=== PATIENT | male | born 1965 | race Caucasian/White ===

== ENCOUNTER 2023-10-26 15:04 | Emergency (ER) | payer OTHER, SELFPAY ==
--- NOTE | ~2023-10-26 | CT_ITS ---
EXAMINATION: CT abdomen pelvis w con DATE: 10/26/2023 18:49 INDICATION: abd pain x3mo TECHNIQUE: Computed tomography (CT) of the abdomen and pelvis was performed with 100 mL Omnipaque-350 intravenous contrast. Automated exposure control and iterative reconstruction technique were employe d. The dose-length product was 303.35 mGy-cm. COMPARISON: None. FINDINGS: Lower thorax: Unremarkable Liver: Mildly enlarged. Biliary/Gallbladder: Gallbladder is partially contracted, with mild wall hyperemia. Mild common bile duct dilation to 8 mm. No obstructing stone or mass Pancreas: No mass or duct dilation. Spleen: Normal. Adrenals:No mass. Kidneys: No suspicious mass, obstructing stone, or hydronephrosis. Multiple subcentimeter right renal hypodensities that most likely represent cysts. GI tract: Mild distal esophageal wall edema. No small or large bowel dilation. Normal appendix. Mesentery/Peritoneum: No ascites, mass, or free air. Retroperitoneum: No mass. Atherosclerotic abdominal aortic and/or arterial calcifications. Pelvis: Pelvic organs are within normal limits. Soft Tissues: Soft tissues and body wall unremarkable. Bones: No acute osseous finding. IMPRESSION: Mild esophagitis. Hepatomegaly. Gallbladder wall hyperemia and mild common bile duct dilation, without significant surrounding inflam matory change or obstructing stone or mass. Correlate with symptoms of right upper quadrant pain and biliary labs. Otherwise, no acute abdominopelvic process detected. Reviewed, dictated and finalized at location K. IMPRESSION: Mild esophagitis. Hepatomegaly. Gallbladder wall hyperemia and mild common bile duct dilation, without signific ant surrounding inflammatory change or obstructing stone or mass. Correlate wit h symptoms of right upper quadrant pain and biliary labs. Otherwise, no acute abdominopelvic process detected.
[2023-10-26 15:26] VITALS: BP 146/69; PULSE 67; RESP 18; TEMP 36.6; O2SAT 98
--- NOTE | 2023-10-26 15:30 | ECG_ITS ---
Measurements Intervals [place] Rate: 56 P: 60 MI: 183 QRS: -52 QRSD: 102 T: -50 QT: 401 QTc: 389 Interpretive Statements SINUS BRADYCARDIA INCOMPLETE RIGHT BUNDLE BRANCH BLOCK LEFT ANTERIOR FASCICULAR BLOCK CANNOT RULE OUT SEPTAL INFARCT, AGE INDETERMINATE BORDERLINE T WAVE ABNORMALITY- INF/LAT LEADS BASELINE ARTIFACT- I, II, AVR, V4-V6 ABNORMAL ECG NO PREVIOUS ECG AVAILABLE FOR COMPARISON Electronically Signed On 10-26-2023 15:52:05 CDT by Akshat Hussein D.O.
--- NOTE | 2023-10-26 15:30 | ED.ABDPAIN ---
HPI - Abdominal Pain General Chief Complaint: Abdominal Pain <Stacy Villarreal PA-C - Last Filed: 10/28/23 09:12> Stated Complaint: abdominal pain <Stacy Villarreal PA-C - Last Filed: 10/28/23 09:12> Time Seen by Provider: 10/26/23 15:30 <Stacy Villarreal PA-C - Last Filed: 10/28/23 09:12> Focused HPI: This is a 58-year-old male that presents to the emergency department for epigastric abdominal pain. Ongoing over the last several months. Reports he has not been evaluated for this or seen a doctor in at least 15 years. The pain has been constant. No associated symptoms. Denies fevers, vomiting, or diarrhea. Patient reported to nursing staff that if we didn't find out the cause of his pain he would shoot himself tonight GENERAL: Well-appearing, well-nourished, and in no acute distress. HEAD: Normocephalic, atraumatic. CHEST: Clear to auscultation. ?No respiratory distress. HEART: Regular rate and rhythm.? NEURO: ?Alert and oriented x3. Patient screened in triage and initial orders placed.? ?Additional care and disposition to be based upon?diagnostic testing and treatment. <Stacy Villarreal PA-C - Last Filed: 10/28/23 09:12> Focused HPI: This is a 58-year-old male that presents to the emergency department for epigastric abdominal pain. Ongoing over the last several months. Reports he has not been evaluated for this or seen a doctor in at least 15 years. The pain has been constant. No associated symptoms. Denies fevers, vomiting, or diarrhea. GENERAL: Well-appearing, well-nourished, and in no acute distress. HEAD: Normocephalic, atraumatic. CHEST: Clear to auscultation. ?No respiratory distress. HEART: Regular rate and rhythm.? NEURO: ?Alert and oriented x3. Patient screened in triage and initial orders placed.? ?Additional care and disposition to be based upon?diagnostic testing and treatment. <Rosaline Caballero PA-C - Last Filed: 10/26/23 21:29> Source: patient <Rosaline Caballero PA-C - Last Filed: 10/26/23 21:29> Mode of arrival: ambulatory <Rosaline Caballero PA-C - Last Filed: 10/26/23 21:29> Limitations: no limitations <Rosaline Caballero PA-C - Last Filed: 10/26/23 21:29> History of Present Illness HPI narrative: Agree with above MSE documentation. States pain has become worse over the last 1 week, constant for the last 3 days. Denies association with eating. Has not tried anything for the pain besides Pepto-Bismol. Denies any associated symptoms. States he is on disability due to his mental health issues. Denies current SI or HI. <Rosaline Caballero PA-C - Last Filed: 10/26/23 21:29> Related Data Allergies/Adverse Reactions: Allergies Allergy/AdvReac Type Severity Reaction Status Date / Time No Known Allergies Allergy Verified 10/26/23 18:04 <Stacy Villarreal PA-C - Last Filed: 10/28/23 09:12> Review of Systems Review of Systems: CONSTITUTIONAL: Denies fever, chills, or sweats. CARDIOVASCULAR: Denies chest pain. RESPIRATORY: Denies dyspnea. GASTROINTESTINAL: See HPI GENITOURINARY: Denies dysuria or hematuria. PSYCHIATRIC: See HPI <Rosaline Caballero PA-C - Last Filed: 10/26/23 21:29> All systems reviewed & are unremarkable except as noted in HPI and below <Rosaline Caballero PA-C - Last Filed: 10/26/23 21:29> [facility] Past Medical History Medical History: Medical History (Updated 10/28/23 @ 09:11 by Stacy Villarreal PA-C) No active medical problems <Stacy Villarreal PA-C - Last Filed: 10/28/23 09:12> Social History Social History: Social History (Updated 10/28/23 @ 09:11 by Stacy Villarreal PA-C) Substance use: never <Stacy Villarreal PA-C - Last Filed: 10/28/23 09:12> Exam Narrative: GENERAL: Appears older than stated age, somewhat disheveled, non-toxic, in no acute distress. HEAD: Normocephalic, atraumatic. ENT: Edentulous. MMs dry RESPIRATORY: Airway patent, respirations nonlabore
[2023-10-26 15:56] LABS: Basophils Percent Auto 0.5 % (0.2-1.2); Eosinophils Absolute Auto 0.2 K/mm3 (0-0.3); Eosinophils Percent Auto 3.3 % (0-4.4); Hematocrit 41.3 % (42.0-52.0); Hemoglobin 13.1 g/dL (14.0-18.0); Lymphocytes Absolute Auto 3.06 K/mm3 (0.9-3.2); Lymphocytes Percent Auto 51.1 % (18.3-44.2); Mean Corpuscular HGB Conc 31.7 g/dl (32-36); Mean Corpuscular Hemoglobin 29.8 pg (26-34); Mean Corpuscular Volume 93.9 fl (80-100); Mean Platelet Volume 9.3 fl (7.4-10.4); Monocytes Absolute Auto 0.5 K/mm3 (0.1-0.6); Monocytes Percent Auto 7.7 % (2.6-8.5); Neutrophils Absolute Auto 2.2 K/mm3 (1.3-6.7); Neutrophils Percent Auto 37.4 % (45.5-73.1); Platelet Count Result 334 k/mm3 (150-375); Red Cell Distribution Width 14.2 % (11.5-14.5)
[2023-10-26 16:28] LABS: Alanine Aminotransferase 33 U/L (6-50); Albumin Level 3.7 g/dL (3.5-5.1); Alkaline Phosphatase 45 U/L (38-126); Anion Gap 1 mmol/L (4-12); Aspartate Amino Transferase 37 U/L (17-59); Bilirubin,Total 0.3 mg/dL (0.2-1.3); Blood Urea Nitrogen 10 mg/dL (9-20); Calcium 9.1 mg/dL (8.4-10.2); Carbon Dioxide 29 mmol/L (22-30); Chloride 108 mmol/L (98-107); Estimated CRCL calculation 83 ml/min; Estimated Glomerular Filt Rate > 60; Glucose 108 mg/dL (65-110); Lipase 72 U/L (23-300); Sodium 138 mmol/L (137-145)
[2023-10-26 16:32] LABS: Troponin I < 0.012 ng/mL (0.000-0.034)
--- NOTE | 2023-10-26 17:04 | PC.NURSE ---
Pt pulled this RN aside in the [facility] and stated last night he had a pistol to his head d/t abdominal pain and if the pain does not go away he will pull the trigger tonight. regional engineer, Sydnee, and CHAZ Villarreal, notified.
[2023-10-26 17:24] LABS: Ethanol < 10 mg/dL (<10)
[2023-10-26 17:34] VITALS: BP 189/72; PULSE 68; RESP 18; TEMP 36.6; O2SAT 100
[2023-10-26 17:46] LABS: Appearance Urine Clear (Clear); Bacteria Urine None Seen /hpf; Bilirubin Urine Negative (Negative); Blood Urine Negative (Negative); Color Urine Yellow (Yellow); Glucose Urine UA Negative (Negative); Ketones Urine Negative (Negative); Leukocyte Esterase Ur Negative LEU/UL (Negative); Nitrate Urine Negative (Negative); Non Pathogenic Casts 0-2; Protein Urine Trace mg/dL (Negative); RBC Urine 0-2 /hpf (0-2); Specific Grav Ur 1.018 (1.001-1.035); Squamous Epithelial Cell Urine None Seen /hpf (Few); Urobilinogen Urine 0.2 mg/dL (<2.0); WBC Urine 0-5 /hpf (0-3)
[2023-10-26 17:56] LABS: Add Urine Microscopic? YES
[2023-10-26 17:57] LABS: Amphetamine Screen Urine Negative (Negative); Barbiturate Screen Urine Negative (Negative); Benzodiazepines Screen Urine Negative (Negative); Cannabinoid Screen Urine Positive (Negative); Cocaine Screen Urine Negative (Negative); Methadone Screen Urine Negative (Negative); Opiate Screen Urine Negative (Negative); Phencyclidine Screen Urine Negative (Negative)
[2023-10-26 18:02] VITALS: BP 151/103; PULSE 49; RESP 17; O2SAT 98
[2023-10-26] MEDS: PANTOPRAZOLE SODIUM IV 40 MG VIAL IV PUSH (18:04)
[2023-10-26] MEDS: Please add drug allergy info to patient profile. 1 EACH XX (18:04)
--- NOTE | 2023-10-26 18:06 | PC.NURSE ---
pt states they only said they wanted to hurt themselves because of the pain they are in but didn't mean it . pt denies any thoughts of self-harm or harming others
--- NOTE | 2023-10-26 18:09 | ED.ABDPAIN ---
HPI - Abdominal Pain General Chief Complaint: Abdominal Pain Stated Complaint: abdominal pain Time Seen by Provider: 10/26/23 15:30 Related Data Allergies Allergy/AdvReac Type Severity Reaction Status Date / Time No Known Allergies Allergy Verified 10/26/23 18:04 Course Vital Signs Vital signs: Vital Signs Temperature 97.9 F 10/26/23 15:26 Pulse Rate 67 10/26/23 15:26 Respiratory Rate 18 10/26/23 15:26 Blood Pressure 146/69 H 10/26/23 15:26 Pulse Oximetry 98 10/26/23 15:26 Oxygen Delivery Room Air 10/26/23 15:26 Temperature 97.8 F 10/26/23 17:34 Pulse Rate 68 10/26/23 17:34 Respiratory Rate 18 10/26/23 17:34 Blood Pressure 189/72 H 10/26/23 17:34 Pulse Oximetry 100 10/26/23 17:34 Oxygen Delivery Room Air 10/26/23 15:26 MDM - Abdominal Pain Medical Records Attestation: I reviewed the patient's medical records. Lab Data Attestation: I reviewed the patient's lab results. 10/26/23 15:51 10/26/23 15:51 Labs: Lab Results 10/26/23 10/26/23 10/26/23 Range/Units 15:50 15:51 17:31 WBC 6.0 (4.5-10.0) K/mm3 RBC 4.40 L (4.6-6.20) M/mm3 Hgb 13.1 L (14.0-18.0) g/dL Hct 41.3 L (42.0-52.0) % MCV 93.9 (80-100) fl MCH 29.8 (26-34) pg MCHC 31.7 L (32-36) g/dl RDW 14.2 (11.5-14.5) % Plt Count 334 (150-375) k/mm3 MPV 9.3 (7.4-10.4) fl Immature Gran % (Auto) 0.0 (0-0.5) % Neut % (Auto) 37.4 L (45.5-73.1) % Lymph % (Auto) 51.1 H (18.3-44.2) % [place] % (Auto) 7.7 (2.6-8.5) % Eos % (Auto) 3.3 (0-4.4) % Baso % (Auto) 0.5 (0.2-1.2) % Lymph # (Auto) 3.06 (0.9-3.2) K/mm3 [place] # (Auto) 0.5 (0.1-0.6) K/mm3 Eos # (Auto) 0.2 (0-0.3) K/mm3 Baso # (Auto) 0.0 (0.0-0.1) K/mm3 Abs Immat Gran (auto) 0.00 (0.00-0.031) K/mm3 Absolute Neuts (auto) 2.2 (1.3-6.7) K/mm3 Absolute Nucleated RBC 0.000 (0.0-0.012) K/mm3 Nucleated RBC % 0.0 (0.0-0.2) % Sodium 138 (137-145) mmol/L Potassium 4.0 (3.4-5.0) mmol/L Chloride 108 H (98-107) mmol/L Carbon Dioxide 29 (22-30) mmol/L Anion Gap 1 L (4-12) mmol/L BUN 10 (9-20) mg/dL Creatinine 0.70 (0.7-1.3) mg/dL Estim Creat Clear Calc 83 ml/min Estimated GFR > 60 (59 - ) Glucose 108 (65-110) mg/dL Calcium 9.1 (8.4-10.2) mg/dL Total Bilirubin 0.3 (0.2-1.3) mg/dL AST 37 (17-59) U/L ALT 33 (6-50) U/L Alkaline Phosphatase 45 (38-126) U/L Troponin I < 0.012 (0.000-0.034) ng/mL Total Protein 7.0 (6.3-8.2) g/dL Albumin 3.7 (3.5-5.1) g/dL Lipase 72 (23-300) U/L TSH (Reflex) Pending Urine Color Yellow (Yellow) Urine Appearance Clear (Clear) Urine pH 7.0 (5.0-9.0) Ur Specific [place] 1.018 (1.001-1.035) Urine Protein Trace (Negative) mg/dL Urine Glucose (UA) Negative (Negative) mg/dL Urine Ketones Negative (Negative) mg/dL Ur Blood (Man) Negative (Negative) Urine Nitrate Negative (Negative) Urine Bilirubin Negative (Negative) Urine Urobilinogen 0.2 (<2.0) mg/dL Leukocyte Esterase Rfl Negative (Negative) ADDISON/UL Urine RBC 0-2 (0-2) /hpf Urine WBC 0-5 (0-3) /hpf Ur Squamous Epith Cells None seen (Few) /hpf Urine Bacteria None seen /hpf Urine Casts 0-2 Urine Opiates Screen Negative (Negative) Urine Methadone Screen Negative (Negative) Ur Barbiturates Screen Negative (Negative) Ur Phencyclidine Scrn Negative (Negative) Ur Amphetamine Screen Negative (Negative) U Benzodiazepines Scrn Negative (Negative) Urine Cocaine Screen Negative (Negative) U Cannabinoids Screen Positive A (Negative) Ethyl Alcohol < 10 (<10) mg/dL Influenza A (RT-PCR) Pending Influenza B (RT-PCR) Pending SARS-CoV-2 RNA (RT-PCR) Pending Imaging Data Attestation: I personally reviewed and interpreted this
[2023-10-26 18:16] LABS: Influenza A QL RT-PCR Negative (Negative); Influenza B QL RT-PCR Negative (Negative); SARS-CoV-2 RNA PCR Negative (Negative)
[2023-10-26 18:19] VITALS: BP 182/108; PULSE 54; RESP 16; O2SAT 100
[2023-10-26] MEDS: ACETAMINOPHEN 500 MG TABLET 1000 MG PO (18:22)
[2023-10-26] MEDS: KETOROLAC 15 MG/ML VIAL (*BKC) IV PUSH (20:09)
[2023-10-26] MEDS: DICYCLOMINE HCL 10 MG CAPSULE 20 MG PO (20:09)
[2023-10-26 21:43] VITALS: BP 168/86; PULSE 45; RESP 15; O2SAT 98
== END 2023-10-26 21:45 | disposition home or self-care (01) ==
PROVIDERS: Physician Assistant; Emergency Provider Physician Assistant
DX: R10.13 Epigastric pain (principal); K20.90 Esophagitis, unspecified without bleeding; R93.2 Abnormal findings on diagnostic imaging of liver and biliary tract; R00.1 Bradycardia, unspecified; I45.2 Bifascicular block; R94.31 Abnormal electrocardiogram [ECG] [EKG]; R16.0 Hepatomegaly, not elsewhere classified
CPT/HCPCS: 36415; 74177; 80053; 80307; 81001; 83690; 84443; 84484; 85025; 87636; 93005; 96374; 96375; 99284; A9270; C9113; J1885; Q9967